=== PATIENT | male | born 1955 | race Caucasian/White ===

== ENCOUNTER 2021-10-28 06:46 | Emergency (ER) | payer MEDICARE ==
[~2021-10-28] VITALS: Ht 182.9 cm; Wt 90.7 kg
--- NOTE | 2021-10-28 07:03 | NUR ---
PT BIBRA 89 FROM HOME C/O CHEST TIGHTNESS X 3 WEEKS. SEEN AT [facility]. PT A/O, RR EVEN NON LABORED. CONNECTED TO MONITORS.
[2021-10-28 07:28] LABS: BASOPHILS # (AUTO) 0.1 K/uL (0.0-0.2); BASOPHILS % (AUTO) 0.4 % (0.0-2.0); EOSINOPHILS % (AUTO) 2.1 % (0.0-6.0); HEMATOCRIT 43 % (39-51); HEMOGLOBIN 14.4 g/dL (13.5-17.5); LYMPHOCYTES # (AUTO) 1.7 K/uL (0.8-4.8); MEAN CORPUSCULAR HGB CONC 33 g/dl (31.0-36.0); MEAN CORPUSCULAR VOLUME 91 fL (80-96); MONOCYTES # (AUTO) 0.9 K/uL (0.1-1.30); MONOCYTES % (AUTO) 7.1 % (2.0-12.0); NEUTROPHILS # (AUTO) 9.5 K/uL (1.8-8.9); NEUTROPHILS % (AUTO) 76.4 % (43.0-81.0); PLATELET COUNT (AUTO) 379 K/uL (150-450); RED BLOOD CELL COUNT(AUTO) 4.76 MIL/uL (4.5-6.0); WHITE BLOOD COUNT (AUTO) 12.5 K/uL (4.3-11.0)
[2021-10-28] MEDS ORDERED: LIDOCAINE VISCOUS 2% UD 15 ML UDC MM ONE (08:00)
[2021-10-28] MEDS ORDERED: MAG HYDROX/AL HYDROX/SIMETH 30 ML UDC PO ONE (08:00)
--- NOTE | 2021-10-28 08:00 | NUR ---
Recived pt in room awke and alert c/o nusea respitiopn spont and easy no chest pain
[2021-10-28 08:08] LABS: CALCIUM, SERUM 9.4 mg/dL (8.5-10.1); CARBON DIOXIDE 26 mmol/L (21-32); CHLORIDE 106 mmol/L (98-107); CREATININE 1.6 mg/dL (0.6-1.3); GLUCOSE 121 mg/dL (74-106); POTASSIUM 4.3 mmol/L (3.5-5.1); SODIUM SERUM 140 mmol/L (136-145); UREA NITROGEN, BLOOD 12 mg/dL (7-18)
[2021-10-28] MEDS ORDERED: LIDOCAINE VISCOUS 2% UD 15 ML UDC ONE (08:22)
[2021-10-28] MEDS ORDERED: MAG HYDROX/AL HYDROX/SIMETH 30 ML UDC ONE (08:22)
--- NOTE | 2021-10-28 09:16 | NUR ---
pt resting and comfortable nausea resolve pain controled
--- NOTE | 2021-10-28 09:30 | NUR ---
hx urine retention with F/C with leg bag
[2021-10-28] MEDS ORDERED: MAG30ORA GT (09:44)
--- NOTE | 2021-10-28 09:50 | NUR ---
Benson SCHUMACHER spoke with pt abut lab result and plan of care d/c home
--- NOTE | 2021-10-28 10:00 | NUR ---
d/cinstraction given to pt fully and verblized understood d/c home with rx dineses chest pain or sob at this time d/h hl on lt ac patent will
[2021-10-28 10:09] VITALS: BP 112/82
== END 2021-10-28 10:12 | disposition home or self-care (01) ==
LOC: ER 06:58
DX: R07.89 Other chest pain (principal); I10 Essential (primary) hypertension; K21.9 Gastro-esophageal reflux disease without esophagitis; F32.A Depression, unspecified; Z87.19 Personal history of other diseases of the digestive system; Z79.899 Other long term (current) drug therapy
CPT/HCPCS: 36415; 71045-TC; 80048-TC; 84484-TC; 85025-TC

== ENCOUNTER 2021-10-28 21:35 | Emergency (ER) | payer MEDICARE ==
[~2021-10-28] VITALS: Ht 182.9 cm; Wt 90.7 kg
[~2021-10-28 21:35] MED LIST: MAG30ORA GT
--- NOTE | 2021-10-28 21:55 | NUR ---
BIBS C/O DIFFUSED ABDOMINAL PAIN XFEW HOURS. +NAUSEA. PATIENT ALERT AND ORIENTED X3. AMBULATORY WITH NON LABORED BREATHING IN BED 11 ON MONITOR AWAITING MD NAM.
--- NOTE | 2021-10-28 21:58 | NUR ---
URINE COLLECTED AND SENT TO LAB.
[2021-10-28] MEDS ORDERED: ONDANSETRON HCL/PF 4 MG/2 ML VIAL IVP ONE (22:30)
[2021-10-28] MEDS ORDERED: ONDANSETRON HCL/PF 4 MG/2 ML VIAL ONE (22:42)
--- NOTE | 2021-10-28 22:48 | NUR ---
BLOOD COLLECTED AND SENT TO LAB
[2021-10-28 23:09] LABS: BASOPHILS # (AUTO) 0.1 K/uL (0.0-0.2); BASOPHILS % (AUTO) 0.5 % (0.0-2.0); EOSINOPHILS % (AUTO) 2.4 % (0.0-6.0); HEMATOCRIT 37 % (39-51); HEMOGLOBIN 12.4 g/dL (13.5-17.5); LYMPHOCYTES # (AUTO) 1.4 K/uL (0.8-4.8); LYMPHOCYTES % (AUTO) 12.6 % (20.0-44.0); MEAN CORPUSCULAR HGB CONC 34 g/dl (31.0-36.0); MEAN CORPUSCULAR VOLUME 90 fL (80-96); MONOCYTES # (AUTO) 0.9 K/uL (0.1-1.30); NEUTROPHILS # (AUTO) 8.5 K/uL (1.8-8.9); NEUTROPHILS % (AUTO) 76.5 % (43.0-81.0); PLATELET COUNT (AUTO) 300 K/uL (150-450); RED BLOOD CELL COUNT(AUTO) 4.11 MIL/uL (4.5-6.0); WHITE BLOOD COUNT (AUTO) 11.1 K/uL (4.3-11.0)
[2021-10-28 23:25] LABS: ALBUMIN 3.7 g/dL (3.4-5.0); BILIRUBIN,DIRECT 0.1 mg/dL (0.0-0.2); BILIRUBIN,TOTAL 0.5 mg/dL (0.2-1.0); CALCIUM, SERUM 8.4 mg/dL (8.5-10.1); CREATININE 1.9 mg/dL (0.6-1.3); POTASSIUM 3.9 mmol/L (3.5-5.1); TOTAL PROTEIN, SERUM 6.5 g/dL (6.4-8.2)
[2021-10-29] VITALS: BP 112/62
--- NOTE | 2021-10-29 00:44 | NUR ---
Patient discharged to home in stable condition. Written and verbal after care instructions given. Patient verbalizes understanding of instruction.
== END 2021-10-29 00:44 | disposition home or self-care (01) ==
LOC: ER 21:38
DX: R10.30 Lower abdominal pain, unspecified (principal); K21.9 Gastro-esophageal reflux disease without esophagitis; F31.9 Bipolar disorder, unspecified; Z87.19 Personal history of other diseases of the digestive system; Z87.438 Personal history of other diseases of male genital organs; Z87.09 Personal history of other diseases of the respiratory system; Z79.899 Other long term (current) drug therapy
CPT/HCPCS: 36415; 74176; 80048; 80076; 83690; 85025; 96374; 99284; J2405

== ENCOUNTER 2021-10-29 23:20 | Emergency (ER) | payer MEDICARE ==
[~2021-10-29] VITALS: Ht 182.9 cm; Wt 85.7 kg
[2021-10-29 23:45] VITALS: BP 129/71
[2021-10-29] MEDS ORDERED: LORAZEPAM 0.5 MG TABLET ONE (23:53)
--- NOTE | 2021-10-29 23:55 | NUR ---
Patient discharged to home in stable condition. Written and verbal after care instructions given. Patient verbalizes understanding of instruction.
[2021-10-30] MEDS ORDERED: LORAZEPAM 1 MG TABLET PO ONE
== END 2021-10-29 23:55 | disposition home or self-care (01) ==
LOC: ER 23:44
DX: F41.9 Anxiety disorder, unspecified (principal); R20.2 Paresthesia of skin; I10 Essential (primary) hypertension; K21.9 Gastro-esophageal reflux disease without esophagitis; F31.9 Bipolar disorder, unspecified; Z87.19 Personal history of other diseases of the digestive system; Z87.438 Personal history of other diseases of male genital organs; Z87.09 Personal history of other diseases of the respiratory system; Z79.899 Other long term (current) drug therapy

== ENCOUNTER 2021-11-03 18:36 | Emergency (ER) | payer MEDICARE ==
[~2021-11-03] VITALS: Ht 182.9 cm; Wt 79.8 kg
[2021-11-03 18:45] VITALS: BP 127/70
[2021-11-03] MEDS ORDERED: GABA-532 PO (19:25)
[2021-11-03] MEDS ORDERED: GABA300C PO (19:28)
--- NOTE | 2021-11-03 19:56 | NUR ---
Patient discharged to home in stable condition. Written and verbal after care instructions given. Patient verbalizes understanding of instruction. Pt ambulatory with a steady gait
== END 2021-11-03 19:57 | disposition home or self-care (01) ==
LOC: ER 18:38
DX: R20.2 Paresthesia of skin (principal); G25.2 Other specified forms of tremor; I10 Essential (primary) hypertension; K21.9 Gastro-esophageal reflux disease without esophagitis; F31.9 Bipolar disorder, unspecified; Z87.19 Personal history of other diseases of the digestive system; Z87.438 Personal history of other diseases of male genital organs; Z87.74 Personal history of (corrected) congenital malformations of heart and circulatory system; Z79.899 Other long term (current) drug therapy

== ENCOUNTER 2022-03-13 00:14 | Emergency (ER) | payer MEDICARE ==
[~2022-03-13] VITALS: Ht 182.9 cm; Wt 79.8 kg
[~2022-03-13 00:14] MED LIST changes: +GABA300C PO
[2022-03-13 00:26] VITALS: BP 129/68
--- NOTE | 2022-03-13 00:26 | NUR ---
KARLENE [address] C/O URINARY RETENTION STARTED EARLIER TODAY. A/OX4. TOLERATING R/A WELL WITH NO SOB OR RESP DISTRESS. SAFETY MEASURES IN PLACE.
[2022-03-13] MEDS ORDERED: DIAZEPAM 5 MG TABLET ONE (00:34)
--- NOTE | 2022-03-13 00:48 | NUR ---
16FR F/C PATENT AND INTACT INSERTED WITH YELLOW URINE RETURN.
[2022-03-13] MEDS ORDERED: DIAZEPAM 5 MG TABLET PO ONE (01:00)
--- NOTE | 2022-03-13 01:03 | NUR ---
Patient discharged to home in stable condition. Written and verbal after care instructions given. Patient verbalizes understanding of instruction. pt ambulatory with a steady gait
--- NOTE | 2022-03-13 01:03 | NUR ---
250 ML URINE OUTPUT VIA F/C
== END 2022-03-13 01:04 | disposition home or self-care (01) ==
LOC: ER 00:16
DX: R33.9 Retention of urine, unspecified (principal); I10 Essential (primary) hypertension; K21.9 Gastro-esophageal reflux disease without esophagitis; Z98.890 Other specified postprocedural states; Z79.899 Other long term (current) drug therapy

== ENCOUNTER 2022-03-25 10:43 | Emergency (ER) | payer MEDICARE ==
[~2022-03-25] VITALS: Ht 182.9 cm; Wt 99.8 kg
--- NOTE | 2022-03-25 11:45 | NUR ---
BIBS FOR URINARY RETENTION SINCE LAST NIGHT, HX OF. THE PATIENT DENIES PAIN. IN ROOM AIR AND DENIES SOB. RESPIRATION REGULAR AND UNLABORED. WILL CONTINUE TO MONITOR THE PATIENT.
--- NOTE | 2022-03-25 12:27 | NUR ---
URINE SAMPLE COLLECTED
--- NOTE | 2022-03-25 12:29 | NUR ---
Kari Solitario insterted per Dr Knowles. The patient gab procedure well. Will continue to monitor the patient. Urine collected and sent to the lab.
[2022-03-25 12:57] LABS: BILIRUBIN,URINE NEGATIVE (NEGATIVE); COLOR,URINE YELLOW (YELLOW); LEUKOCYTE ESTERASE ,URINE NEGATIVE (NEGATIVE); NITRITE, URINE NEGATIVE (NEGATIVE); PH,URINE 5.5 (5.0-8.0); PROTEIN,URINE NEGATIVE (NEGATIVE); UGLUCOSE NEGATIVE (NEGATIVE); UROBILINOGEN,URINE 0.2 EU/dL (0.2)
[2022-03-25 13:15] LABS: BACTERIA,URINE Few /HPF (None Seen); RBC,URINE 21-50 /HPF (0-2)
--- NOTE | 2022-03-25 14:12 | NUR ---
TOTAL 700 CC CLEAR COLOR URINE OUTPUT
[2022-03-25 14:15] VITALS: BP 116/64
--- NOTE | 2022-03-25 14:15 | NUR ---
Patient discharged to home in stable condition. Written and verbal after care instructions given. Patient verbalizes understanding of instruction.
== END 2022-03-25 14:16 | disposition home or self-care (01) ==
LOC: ER 10:44
DX: R33.9 Retention of urine, unspecified (principal); I10 Essential (primary) hypertension; K21.9 Gastro-esophageal reflux disease without esophagitis; F31.9 Bipolar disorder, unspecified; Z98.890 Other specified postprocedural states; Z79.899 Other long term (current) drug therapy
CPT/HCPCS: 81001